=== PATIENT | male | born 1995 | race American Indian/Alaskan Native ===

== ENCOUNTER 2020-10-09 03:53 | Emergency (ER) | payer SELFPAY ==
[2020-10-09] MEDS ORDERED: DIPHtheria,PERTUSSIS(ACELL),TETANUS VACCINE/PF 0.5 ML VIAL IM ONE (04:32)
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
--- NOTE | 2020-10-09 05:51 | XRay Report ---
RIGHT HAND 3 VIEWS INDICATION / CLINICAL INFORMATION: laceration with glass COMPARISON: None available. FINDINGS: BONES / JOINT(S): No acute fracture or subluxation. No significant arthritis. SOFT TISSUES: Lateral soft tissue injury. Increased density is seen laterally. Cannot be determined i f this is the wound or a foreign body. ADDITIONAL FINDINGS: None. Signer Name: Holland Gibbs MD Signed: 10/09/2020 5:47 AM Workstation Name: [id number]
[2020-10-09 06:11] VITALS: BP 117/72
== END 2020-10-09 06:39 | disposition other institution (70) ==
LOC: ED 03:53
DX: S60.552A Superficial foreign body of left hand, initial encounter (principal); S61.422A Laceration with foreign body of left hand, initial encounter; R58 Hemorrhage, not elsewhere classified; Y04.2XXA Assault by strike against or bumped into by another person, initial encounter; Y93.89 Activity, other specified; Y92.89 Other specified places as the place of occurrence of the external cause; Y99.8 Other external cause status
CPT/HCPCS: 73130; 90471; 90715; 96365; 99291; J0690